=== PATIENT | female | born 1990 | race Caucasian/White ===

== ENCOUNTER 2017-04-14 08:33 | Emergency (ER) | payer SELFPAY, BC | END 2017-04-14 09:59 | disposition left against medical advice (07) | LOC: FTE 09:59 | DX: Z53.21 Procedure and treatment not carried out due to patient leaving prior to being seen by health care provider (principal) ==

== ENCOUNTER 2017-08-19 19:54 | Emergency (ER) | payer BC | END 2017-08-19 21:21 | disposition home or self-care (01) | LOC: E/R 21:21 → FTE 19:54 | DX: S50.02XA Contusion of left elbow, initial encounter (principal); W18.39XA Other fall on same level, initial encounter; Y92.9 Unspecified place or not applicable | CPT/HCPCS: 73080; 73080-LT; 99283-25 ==